=== PATIENT | male | born 1995 | race African-American/Black ===

== ENCOUNTER 2025-03-11 14:31 | Emergency (ER) | payer OTHER, SELFPAY ==
[2025-03-11 14:44] VITALS: BP 102/63; PULSE 62; RESP 18; TEMP 36.6; O2SAT 98; BMI 36.6
--- NOTE | 2025-03-11 14:44 | ED.WOUNDLAC ---
HPI - Wound/Laceration General Chief Complaint: Wound/Laceration Stated Complaint: Thumb lac Time Seen by Provider: 03/11/25 14:50 Source: patient, RN notes reviewed and old records reviewed Mode of arrival: ambulatory Limitations: no limitations History of Present Illness ED Provider: Cris HPI narrative: Patient is a 29-year-old right-hand dominant male presenting to the emergency department with complaint of laceration to left thumb. States that he has been moving today and picked up a chandelier with a broken piece of glass, accidentally cutting his thumb. Denies any numbness or tingling. Unsure last Tdap. Denies any other injuries. Related Data Allergies Allergy/AdvReac Type Severity Reaction Status Date / Time No Known Allergies Allergy Verified 03/11/25 14:46 Review of Systems Review of Systems: as per hpi Yes all other systems are reviewed and are negative Constitutional: Constitutional: Reports as per HPI [facility] Social History Social History Advance Directives: No Advance Directives Information Provided: No Do you have a plan to hurt others: No Plan Physical Exam Vital Signs: Vital Signs: Last Vital Signs Temp 98 F 03/11/25 14:44 Pulse 62 03/11/25 14:44 Resp 18 03/11/25 14:44 BP 102/63 03/11/25 14:44 Pulse Ox 98 03/11/25 14:44 BMI result Body Mass Index 36.6 Vital signs have been reviewed and appear to be correct. Blood pressure normal. Heart rate normal. Respiratory rate normal. Temperature normal. Oxygen saturation normal. Const: General: cooperative, healthy appearing and no acute distress Orientation/consciousness: oriented to person, oriented to place, oriented to time and patient oriented x3 Limitations: no limitations HEENT: Head: Yes normocephalic and Yes atraumatic Ears: external ears normal General nose exam: Normal external nose present Face and sinus: Yes face symmetric Mouth: oropharynx normal and moist mucous membranes Throat: Yes uvula midline Eyes: Pupils: Equal, round and reactive pupils present Neck: Neck: Yes normal visual inspection and Yes supple Resp: Effort & Inspection: normal respiratory effort and able to speak in complete sentences Auscultation: clear to auscultation bilaterally Cardio: Rate: regular rate Rhythm: regular rhythm Heart sounds: S1 normal heart sound present and S2 normal heart sound present GI: Palpation (GI): Soft to palpation and nontender Auscultation: normoactive bowel sounds : General: Yes no CVA tenderness Back/Spine/Pelvis: Back: no CVA tenderness Skin: General skin exam: elasticity normal and turgor normal Neuro: General: oriented to person, oriented to place, oriented to time, patient oriented x3, moves all extremities, no focal motor deficits and CN's II-XI intact bilaterally Cranial nerves: Yes Equal, round and reactive pupils present Cognition (Neuro): normal cognition Extrem: General: Yes full ROM, Yes no pedal edema and Yes no calf tenderness Left upper extremity: hand Details: normal capillary refill, neuromotor exam normal, neurosensory exam normal, tendon exam normal, vascular exam Details: radial pulse present and normal capillary refill and laceration (1cm linear superficial laceration over palmar aspect of IP joint of thumb) Hand/finger images:  1. 1cm linear laceration over IP joint Psych: Mental Status: mental status grossly normal Affect: normal affect Thought process: Normal thought process present Course Course Course Narrative: This is a Rapid Medical Examination (RME) performed by Vanita Quiroz NP in triage. Full assessment, plan deferred to intake clinician. 29-year-old male patient presents to the ED for evaluation of a finger laceration sustained around 1:30 PM today when he was moving an old chandelier. Reports he accidentally sliced the finger on the glass. Laceration is located to the left thumb. Dressing is currently intact, applied by dad after being cleansed. Unknown last Tdap. Plan: Tdap; move to room for closure by intake clinician. Medications Administered Discontinued Medications Generic Name Dose Route Start Last Admin Trade Name Kallie PRN Reason Stop Dose Admin Bacitracin 1 appl 03/11/25 14:56 03/11/25 15:04 Bacitracin Oint 0.9 Gm Packet TOPICAL 03/11/25 14:57 1 appl ONCE ONE Administration Protocol Diphtheria/Tetanus/Acell Pertussis 0.5 ml 03/11/25 14:46 03/11/25 15:05 Diphth,Pertus(Acell),Tet Adult 0.5 Ml Syringe IM 03/11/25 14:47 0.5 ml .ONCE ONE Administration Lidocaine HCl 5 ml 03/11/25 14:56 03/11/25 15:04 Lidocaine Hcl 1 % Mpf 5 Ml Vial INFILTRATI 03/11/25 14:57 5 ml ONCE ONE Administration Medical Decision Making Medical Decision Making [facility] Narrative: Patient is a 29-year-old right-hand dominant male presenting to the emergency department with complaint of laceration to left thumb. On exam patient is awake, A+Ox3, VS WNL, afebrile, normal neurological exam without focal deficits, physical exam findings as above. Given reported symptoms and physical exam findings, initial differential includes but is not limited to laceration of thumb. No evidence of tendon injury, neurovascularly intact distally. Laceration repaired as per procedure note. Tdap updated. Wound care instructions and return precautions discussed at bedside. Patient verbalized understanding of and agreement with plan. Differential Diagnosis Differential Diagnoses: The differential diagnosis associated with the presentation includes as per mdm Admission/Observation Consideration of admission/observation: Escalation of care including admission/observation considered Patient would have been admitted to the hospital and transferred to appropriate facility had their clinical presentation warranted hospital admission. External Record Review External record reviewed: Inpatient record, Office record and Outpatient record Procedures Laceration Laceration 1: Site: hand (thumb) Side (If applicable): left Size (cm): 1 Description: linear Depth: simple, single layer Local Anesthetic: lidocaine 1% Amount of anesthesia used (mL): 1 Pre-repair: wound explored, irrigated extensively and deep structures intact Skin layer closed with: Prolene Size (cm): 5-0 Number of sutures: 3 Technique: simple, interrupted Discharge Plan Discharge Clinical Impression: Laceration of left thumb Patient Disposition: Home, Self-Care Instructions: Diphtheria/Acellular Pertussis/Tetanus Vaccine (By injection), Care For Your Stitches (DC), Finger Laceration (ED), Stitches Removal (ED) Additional Instructions: You have been evaluated in the emergency department today for a laceration to your thumb. Your laceration was repaired in the emergency department with 3 sutures. Please keep the area surrounding the laceration clean and dry and keep dressing in place for the next 24 hours. After that please change the dressing and assess the wound daily. Do not submerge the wound in water until the stitches has been removed and the wound has fully healed (no washing dishes, swimming, hot tubs, etc. and ESPECIALLY no outdoor water). Keep the area out of direct sunlight for the next 6 months to help prevent scarring. You should have the sutures removed in 7-10 days. Your Tdap (tetanus) vaccine was updated today. If you develop fever, redness, swelling at the site of your laceration, or thick yellow drainage please come back to the ER for a wound check. Print Language: Kinyarwanda
--- OUTSIDE RECORDS SUMMARY | 2025-03-11 15:00 | XMS_ITS | Clinical Summary ---
Author Organization [facility] Address [address] [place] [address] Care Team Providers Care Dedicated Driver Name Role Phone Unavailable Primary Care Provider Unavailabl e Social History Tobacco Use Types Packs/Day Years Used Date Smoking Tobacco: Never Assessed Sex and Gender Information Value Date Recorded Sex Assigned at Not on file Legal Sex Male 2:03 PM EDT Gender Identity Not on file Sexual Orientation Not on file Plan of Treatment Health Maintenance Due Date Last Done Comments Hepatitis C Virus Screening 1993 HIV Screening 2006 DTaP/Tdap/Td Vaccines (1 - Tdap) 2012 Hepatitis B Vaccines (1 of 3 - 19+ 3-dose series) 2012 COVID-19 Vaccine ( - 2024-2 6 season) 2024 HPV Vaccines (No Doses Required) Completed Pneumococcal Vaccine: Pediat kim (0-5 Years) and At-Risk Patients (6 to 49 Years) Aged Out No longer eligible b ased on patient's age to complete this topic
[2025-03-11] MEDS: Lidocaine HCl 1 % MPF 5 ML VIAL INFILTRATI (15:04)
[2025-03-11] MEDS: Diphth,Pertus(ACell),Tet Adult 0.5 ML SYRINGE IM (15:05)
[2025-03-11 15:20] VITALS: BP 102/63; PULSE 62; RESP 18; TEMP 36.6; O2SAT 98
== END 2025-03-11 15:21 | disposition home or self-care (01) ==
PROVIDERS: Emergency Provider Emergency Medicine Emergency Medical Services
DX: S61.012A Laceration without foreign body of left thumb without damage to nail, initial encounter (principal); W25.XXXA Contact with sharp glass, initial encounter; Y93.E6 Activity, residential relocation; Y92.009 Unspecified place in unspecified non-institutional (private) residence as the place of occurrence of the external cause; Y99.9 Unspecified external cause status; Z23 Encounter for immunization
CPT/HCPCS: 12001; 90471; 90715; 99282; 99284; J2003